=== PATIENT | female | born 1995 | race African-American/Black ===

== ENCOUNTER 2016-11-25 16:18 | Emergency (ER) | payer OTHER ==
[~2016-11-25] VITALS: Ht 167.6 cm; Wt 71.0 kg
[2016-11-25 16:21] VITALS: BP 100/57; PULSE 84; RESP 16; TEMP 98.4; O2SAT 100
[2016-11-25] MEDS ORDERED: PENI250T PO (16:53)
[2016-11-25] MEDS ORDERED: IBUP800T23 PO (16:53)
--- NOTE | 2016-11-25 16:54 | PD ---
HPI Chief Complaint: Oral / Dental Pain or Problem Time Seen by Provider: 16:50 Travel History International Travel<30 days: No Contact w/Intl Traveler<30days: No Traveled to known affect area: No History of Present Illness HPI 21-year-old female presents emergency department for evaluation of left upper dental pain for the last 2 days. Patient reports constant throbbing/aching pain for the last 2 days. She reports symptoms worsened with eating, drinking, chewing. Unrelieved with anrb-rls-ivmjhhj Tylenol. Patient has appointment with dentist tomorrow. She denies fever or chills. PFSH Past Medical History Medical History: Denies Significant Hx Hx Anticoagulant Therapy: No Asthma: Yes Diabetes: No Diminished Hearing: No Respiratory: Yes (ASTHMA) Immunizations Current: Yes Tetanus Vaccination: > 5 Years Influenza Vaccination: No ?: Not LMP: "Last month" : 0 Past Surgical History Oral Surgery: Yes (TEETH SPACERS) Tonsillectomy: Yes (& adenoids ) Social History Alcohol Use: Yes (Occ.) Tobacco Use: No Substance Use: Yes (Marijuana) Allergies-Medications (Allergen,Severity, Reaction): Coded Allergies: No Known Allergies (Verified , 11/25/16) Reported Meds & Prescriptions Reported Meds & Active Scripts Active No Active Prescriptions or Reported Medications Review of Systems Except as stated in HPI: all other systems reviewed are Neg Physical Exam Narrative GENERAL: Well-nourished, well-developed patient. SKIN: Focused skin assessment warm/dry. HEAD: Normocephalic. EYES: No scleral icterus. No injection or drainage. NECK: Supple, trachea midline. No JVD or lymphadenopathy. MOUTH: Dental decay and fracture of tooth #14 with surrounding gum erythema CARDIOVASCULAR: Regular rate and rhythm without murmurs, gallops, or rubs. RESPIRATORY: Breath sounds equal bilaterally. No accessory muscle use. GASTROINTESTINAL: Abdomen soft, non-tender, nondistended. Data Data Last Documented VS Vital Signs Date Time Temp Pulse Resp B/P Pulse Ox O2 Delivery O2 Flow Rate FiO2 11/25/16 16:21 98.4 84 16 100/57 100 MDM Medical Decision Making Medical Screen Exam Complete: Yes Emergency Medical Condition: Yes Differential Diagnosis Dental infection, dental caries, dental fracture Narrative Course 21-year-old female presents emergency department for evaluation of a fractured tooth. She reports over the last 2 days developed increasing pain and some gum swelling. On exam she is found to have dental decay with surrounding gum erythema involving tooth #14. Patient will be treated with antibiotics NSAIDs and instructed to follow with her dentist. Diagnosis Primary Impression: Pain, dental Referrals: Dentist Scripts Ibuprofen 800 Mg [id number] Mg PO Q8H PRN (Pain/Inflammation) #30 TAB Prov:Katie Murillo 11/25/16 Penicillin V Potassium 250 Mg [id number] Mg PO Q6H #28 TAB Prov:Katie Murillo 11/25/16 Disposition: 01 DISCHARGE HOME Condition: Stable Katie Murillo Nov 25, 2016 16:54
== END 2016-11-25 17:00 | disposition home or self-care (01) ==
LOC: PHEFT 16:18
DX: K08.89 Other specified disorders of teeth and supporting structures (principal)
CPT/HCPCS: 99283

== ENCOUNTER 2017-02-16 19:47 | Emergency (ER) | payer OTHER ==
[~2017-02-16] VITALS: Ht 167.6 cm; Wt 73.3 kg
[~2017-02-16 19:47] MED LIST: IBUP800T23 PO; PENI250T PO
[2017-02-16 19:50] VITALS: BP 126/79; PULSE 55; RESP 18; TEMP 98.1; O2SAT 100
--- NOTE | 2017-02-16 20:34 | PD ---
HPI Chief Complaint: Oral / Dental Pain or Problem Time Seen by Provider: 20:08 Travel History International Travel<30 days: No Contact w/Intl Traveler<30days: No Traveled to known affect area: No History of Present Illness HPI 21-year-old female presents to the emergency room for evaluation of right upper dental pain that has been ongoing intermittently for the past several months. Patient made an appointment with the dentist for next week. States as the tooth continues to chip away, her pain increases. Today is the worst that it has been. She has been taking [id number] ibuprofen without any relief. Patient denies fever, chills, nausea, vomiting, and drainage. No chronic medical conditions or daily medications. PFSH Past Medical History Hx Anticoagulant Therapy: No Asthma: Yes Diabetes: No Diminished Hearing: No Respiratory: Yes (asthma) Immunizations Current: Yes Tetanus Vaccination: > 5 Years Influenza Vaccination: No ?: Not LMP: december 2016 : 0 Past Surgical History Oral Surgery: Yes (TEETH SPACERS) Tonsillectomy: Yes (& adenoids ) Social History Alcohol Use: Yes (Occ.) Tobacco Use: No Substance Use: Yes (Marijuana) Allergies-Medications (Allergen,Severity, Reaction): Coded Allergies: No Known Allergies (Verified , 02/16/17) Reported Meds & Prescriptions Reported Meds & Active Scripts Active Penicillin V Potassium 500 Mg Tab 500 Mg PO Q8H 7 Days Review of Systems Except as stated in HPI: all other systems reviewed are Neg Physical Exam Narrative GENERAL: Well-nourished, well-developed female in no acute distress. Afebrile. Ambulatory. SKIN: Focused skin assessment warm/dry. HEAD: Normocephalic. EYES: No scleral icterus. No injection or drainage. DENTAL: Good dentition overall. No loose or chipped teeth. No malocclusion. No facial swelling. Tooth #1 has a large cavity and is tender to palpation. There is no surrounding erythema or edema. No spontaneous drainage. NECK: Supple, trachea midline. No JVD or lymphadenopathy. CARDIOVASCULAR: Regular rate and rhythm without murmurs, gallops, or rubs. RESPIRATORY: Breath sounds equal bilaterally. No accessory muscle use. Data Data Last Documented VS Vital Signs Date Time Temp Pulse Resp B/P (MAP) Pulse Ox O2 Delivery O2 Flow Rate FiO2 02/16/17 19:50 98.1 55 18 126/79 (95) 100 Orders Orders Ibuprofen (Motrin) (02/16/17 20:45) MDM Medical Decision Making Medical Screen Exam Complete: Yes Emergency Medical Condition: Yes Medical Record Reviewed: Yes Differential Diagnosis Dental pain, gingivitis, dental abscess Narrative Course 21-year-old female presents to the emergency room for evaluation of dental pain for the past several weeks that worsened today. She denies systemic signs of infection or drainage. She has an appointment with her dentist next week. Patient is afebrile and well-appearing in the emergency room. Physical exam is reassuring. There is no obvious abscess over tooth #1. No facial swelling. Patient will be given penicillin and told to follow-up with her dentist as planned. Told to return for worsening symptoms. she understands and agrees to plan. Diagnosis Primary Impression: Pain, dental Referrals: Dentist Additional Instructions: Rest and drink plenty of fluids. [place] your teeth twice daily. Penicillin as directed, until gone. Follow-up with a dentist. Return to the emergency room for worsening symptoms. Med/Other Pt SpecificInfo: Prescription(s) given Scripts Penicillin V Potassium (Penicillin V Potassium) 500 Mg Tab 500 MG PO Q8H for Infection for 7 Days, TAB 0 Refills Prov: Frederick Herzog MD 02/16/17 Disposition: 01 DISCHARGE HOME Condition: Stable Cara Oneal Feb 16, 2017 20:34
[2017-02-16] MEDS ORDERED: PENI500T PO (20:35)
[2017-02-16] MEDS ORDERED: IBUPROFEN 800 MG TAB PO ONE (20:45)
== END 2017-02-16 21:01 | disposition home or self-care (01) ==
LOC: PHEFT 19:47
DX: K08.89 Other specified disorders of teeth and supporting structures (principal); Z87.09 Personal history of other diseases of the respiratory system
CPT/HCPCS: 99283

== ENCOUNTER 2017-06-15 13:22 | Emergency (ER) | payer OTHER ==
[~2017-06-15] VITALS: Ht 167.6 cm; Wt 71.6 kg
[~2017-06-15 13:22] MED LIST changes: -IBUP800T23 PO; -PENI250T PO; +PENI500T PO
[2017-06-15 13:29] VITALS: BP 117/67; PULSE 62; RESP 16; TEMP 98.8; O2SAT 100
[2017-06-15] MEDS ORDERED: ZOFR4TAB PO (13:55)
[2017-06-15] MEDS ORDERED: PROMETHAZINE INJ 25 MG/ML VIAL IM ONE (14:00)
[2017-06-15] MEDS ORDERED: ONDANSETRON HCL 4 MG/2 ML VIAL IM ONE (14:00)
--- NOTE | 2017-06-15 14:01 | PD ---
HPI Chief Complaint: GI Complaint Time Seen by Provider: 13:38 Travel History International Travel<30 days: No Contact w/Intl Traveler<30days: No Traveled to known affect area: No History of Present Illness HPI The patient was seen and examined in the presence of the nurse. This patient complains of nausea and vomiting. Duration one day. Last night at celebration she was drinking alcohol fairly heavily. No drug use. No intentional overdose. She has multiple episodes of nausea and vomiting. No abdominal pain or diarrhea. PFSH Past Medical History Hx Anticoagulant Therapy: No Asthma: Yes Diabetes: No Diminished Hearing: No Respiratory: Yes (asthma) Immunizations Current: Yes Influenza Vaccination: No ?: Unknown LMP: 05/24/17 : 0 Past Surgical History Oral Surgery: Yes (TEETH SPACERS) Tonsillectomy: Yes (& adenoids ) Social History Alcohol Use: Yes ([employer]) Tobacco Use: No Substance Use: Yes (Marijuana) Allergies-Medications (Allergen,Severity, Reaction): Coded Allergies: No Known Allergies (Verified Adverse Reaction, Unknown, 06/15/17) Reported Meds & Prescriptions Reported Meds & Active Scripts Active Zofran (Ondansetron HCl) 4 Mg Tab 4 Mg PO Q6HR PRN Penicillin V Potassium 500 Mg Tab 500 Mg PO Q8H 7 Days Review of Systems General / Constitutional: No: Fever HENT: No: Headaches Gastrointestinal: Positive: Nausea, Vomiting Physical Exam Narrative GENERAL: Well-nourished, well-developed patient in no apparent distress. SKIN: Focused skin assessment reveals no rash and nodules. Skin is Warm and dry. HEAD: Atraumatic. Normocephalic. EYES: Pupils equal and round. No scleral icterus. No injection or drainage. ENT: No nasal bleeding or discharge. Mucous membranes pink and moist. NECK: Trachea midline. No JVD. CARDIOVASCULAR: Regular rate and rhythm. No murmur appreciated. RESPIRATORY: No accessory muscle use. Clear to auscultation. Breath sounds equal bilaterally. GASTROINTESTINAL: Abdomen soft, non-tender, nondistended. Hepatic and splenic margins not palpable. MUSCULOSKELETAL: No obvious deformities. No clubbing. No cyanosis. No edema. NEUROLOGICAL: Awake and alert. No obvious cranial nerve deficits. Motor grossly within normal limits. Normal speech. PSYCHIATRIC: Appropriate mood and affect; insight and judgment normal. Data Data Last Documented VS Vital Signs Date Time Temp Pulse Resp B/P (MAP) Pulse Ox O2 Delivery O2 Flow Rate FiO2 06/15/17 13:29 98.8 62 16 117/67 (84) 100 Orders Orders Promethazine Inj (Phenergan Inj) (06/15/17 14:00) Ondansetron Inj (Zofran Inj) (06/15/17 14:00) MDM Medical Decision Making Medical Screen Exam Complete: Yes Emergency Medical Condition: Yes Medical Record Reviewed: Yes Differential Diagnosis Alcohol-induced vomiting, hang over, gastroenteritis Narrative Course I have reviewed the patient's electronic medical record. Patient's clinically looking well. Normal exam and normal vital signs. She looks euvolemic. Injection of Phenergan and Zofran given and prescription for Zofran I have recommended clear liquids for 24 hours, then gradually advance as tolerated. Diagnosis Primary Impression: Nausea and vomiting Qualified Codes: R11.2 - Nausea with vomiting, unspecified Additional Instructions: The patient was advised to follow up with their physician and return if they worsen. I have recommended clear liquids for 24 hours, then gradually advance as tolerated. Med/Other Pt SpecificInfo: Prescription(s) given Scripts Ondansetron (Zofran) 4 Mg Tab 4 MG PO Q6HR Y for NAUSEA OR VOMITING, #12 TAB 0 Refills Prov: Jacques Wilder MD 06/15/17 Disposition: 01 DISCHARGE HOME Condition: Stable Jacques Wilder MD Jun 15, 2017 14:01
== END 2017-06-15 14:40 | disposition home or self-care (01) ==
LOC: PHED 13:22
DX: R11.2 Nausea with vomiting, unspecified (principal); Z87.09 Personal history of other diseases of the respiratory system
CPT/HCPCS: 96372; 99284; J2405; J2550

== ENCOUNTER 2017-08-31 05:30 | Emergency (ER) | payer OTHER ==
[~2017-08-31] VITALS: Ht 167.6 cm; Wt 72.6 kg
[~2017-08-31 05:30] MED LIST changes: +ZOFR4TAB PO
[2017-08-31 05:34] VITALS: BP 121/75; PULSE 71; RESP 18; TEMP 99.9; O2SAT 98
[2017-08-31] MEDS ORDERED: PENI500T PO (06:27)
[2017-08-31] MEDS ORDERED: IBUPROFEN 800 MG TAB PO ONE (06:30)
[2017-08-31] MEDS ORDERED: PENICILLIN V POTASSIUM 500 MG TAB PO ONE (06:30)
--- NOTE | 2017-08-31 06:31 | PD ---
HPI Chief Complaint: Oral / Dental Pain or Problem Time Seen by Provider: 06:25 Travel History International Travel<30 days: No Contact w/Intl Traveler<30days: No Traveled to known affect area: No History of Present Illness HPI 22-year-old female presents to the emergency department for complaint of right upper dental pain that has not responded to hydrocodone. Patient had appointment 5 days ago on Thursday with dentist for dental extraction of decayed and broken tooth but missed the appointment for her birthday and then started having dental pain this weekend. Patient states pain is severe. No fever no chills no nausea no vomiting no neck pain no ear pain shortness of breath no chest pain no abdominal pain no dysuria no other complaints. Last menstrual period was at the beginning of August and normal for her. The patient rates her pain 8/10 in intensity. Patient has had poor oral intake secondary to pain. PFSH Past Medical History Narrative Medical Asthma; alcohol use substance use; nursing notes reviewed Hx Anticoagulant Therapy: No Asthma: Yes Diabetes: No Diminished Hearing: No Respiratory: Yes (asthma) Immunizations Current: Yes Tetanus Vaccination: > 5 Years Influenza Vaccination: No ?: Unknown LMP: 08/13/17 : 0 Past Surgical History Oral Surgery: Yes (TEETH SPACERS) Tonsillectomy: Yes (& adenoids ) Social History Alcohol Use: Yes ([employer]) Tobacco Use: No Substance Use: Yes (Marijuana) Allergies-Medications (Allergen,Severity, Reaction): Coded Allergies: No Known Allergies (Verified Adverse Reaction, Unknown, 08/31/17) Reported Meds & Prescriptions Reported Meds & Active Scripts Active Penicillin V Potassium 500 Mg Tab 500 Mg PO Q6H 10 Days Review of Systems Except as stated in HPI: all other systems reviewed are Neg Physical Exam Narrative GENERAL: Well-developed well-nourished female no acute distress no respiratory distress SKIN: Warm and dry. HEAD: Normocephalic. EYES: No scleral icterus. No injection or drainage. ENT: Mucous membranes moist #3 dentition with dental decay dental carry mild gingival edema; airway is patent NECK: Supple, trachea midline. No JVD or lymphadenopathy. CARDIOVASCULAR: Regular rate and rhythm without murmurs, gallops, or rubs. RESPIRATORY: Breath sounds equal bilaterally. No accessory muscle use. GASTROINTESTINAL: Abdomen soft, non-tender, nondistended. MUSCULOSKELETAL: No cyanosis, or edema. BACK: Nontender without obvious deformity. No CVA tenderness. Data Data Last Documented VS Vital Signs Date Time Temp Pulse Resp B/P (MAP) Pulse Ox O2 Delivery O2 Flow Rate FiO2 08/31/17 06:18 18 08/31/17 05:34 99.9 71 121/75 (90) 98 Orders Orders Penicillin V Potassium (Veetids) (08/31/17 06:30) Ibuprofen (Motrin) (08/31/17 06:30) Ed Urine Pregnancytest Poc (08/31/17 06:31) Ed Discharge Order (08/31/17 06:33) MDM Medical Decision Making Medical Screen Exam Complete: Yes Emergency Medical Condition: Yes Medical Record Reviewed: Yes Interpretation(s) POC hCG:negative Differential Diagnosis Dentalgia, dental fracture, dental caries, dental abscess Narrative Course Patient given first dose of antibiotic Motrin for pain [id number] hCG performed She is stable for outpatient management Diagnosis Primary Impression: Dentalgia Additional Impression: Dental abscess Referrals: Dentist 1 day Patient Instructions: General Instructions Med/Other Pt SpecificInfo: Prescription(s) given Scripts Penicillin V Potassium (Penicillin V Potassium) 500 Mg Tab 500 MG PO Q6H for Infection for 10 Days, #40 TAB 0 Refills Prov: Mikki Keen MD 08/31/17 Mikki Keen MD Aug 31, 2017 06:31
[2017-08-31 06:41] VITALS: BP 120/70; PULSE 72; RESP 18; O2SAT 98
== END 2017-08-31 06:48 | disposition home or self-care (01) ==
LOC: PHED 05:30
DX: K08.89 Other specified disorders of teeth and supporting structures (principal); K04.7 Periapical abscess without sinus; F12.90 Cannabis use, unspecified, uncomplicated
CPT/HCPCS: 84703; 99283